=== PATIENT | male | born 1980 | race Caucasian/White ===

== ENCOUNTER 2021-06-15 09:30 | Day surgery (SDC) | payer OTHER ==
[~2021-06-15] VITALS: Ht 190.5 cm; Wt 113.4 kg
[2021-06-15] MEDS ORDERED: ULTRACET PO (15:21)
[2021-06-15] MEDS ORDERED: BACTRIM DS TAB1 EACH PO (15:22)
[2021-06-15] MEDS ORDERED: MUPIROCIN1 G1 TOP (15:22)
[2021-06-15] MEDS ORDERED: PEPCID AC20 MG PO (15:22)
[2021-06-15] MEDS ORDERED: HIBICLENS118 ML TOP (15:23)
== END 2021-06-15 17:40 | disposition home or self-care (01) ==
LOC: CIR.AMB 09:30 → O/R 09:30 → ER 09:30 → SEC-K 09:30 → O/R 15:02 → SEC-K 15:02 → EDSTATUS 15:30 → CIR.AMB 17:40 → O/R 17:40
PROVIDERS: ATTEND General Practice
DX: L02.31 Cutaneous abscess of buttock (principal); K61.0 Anal abscess; F17.210 Nicotine dependence, cigarettes, uncomplicated